=== PATIENT | male | born 1960 | race Hispanic/Latino ===

== ENCOUNTER 2017-07-06 07:34 | Emergency (ER) | payer BC ==
[2017-07-06 08:09] LABS: BASOPHILS % (AUTO) 0.7 % (0.0-5.0); EOSINOPHILS % (AUTO) 2.3 % (0.0-8.0); HEMATOCRIT 46.9 % (42-54); LYMPHOCYTES % (AUTO) 26.7 % (21.0-51.0); MEAN CORPUSCULAR HEMOGLOBIN 30.9 pg (27.0-33.0); MEAN CORPUSCULAR HGB CONC 34.4 g/dL (32.0-36.0); MONOCYTES % (AUTO) 6.5 % (3.0-13.0); NEUTROPHILS % (AUTO) 63.8 % (40.0-77.0); PLATELET COUNT (AUTO) 168 K/uL (130-400); RED BLOOD CELL COUNT(AUTO) 5.21 MIL/uL (4.50-6.20); RED CELL DISTRIBUTION WIDTH 13.2 % (11.0-15.5); WHITE BLOOD COUNT (AUTO) 5.9 K/uL (4.8-10.8)
[2017-07-06 08:20] LABS: CREATININE 1.1 mg/dL (0.5-1.5); POTASSIUM 4.2 mmol/L (3.5-5.1)
[2017-07-06 08:33] LABS: BILIRUBIN,TOTAL 1.7 mg/dL (0.2-1.0); CREATINE KINASE MB 0.6 ng/mL (0.5-3.6); TOTAL PROTEIN, SERUM 7.3 g/dL (6.0-8.3)
== END 2017-07-06 09:39 | disposition home or self-care (01) ==
LOC: EDH 07:34
DX: R07.89 Other chest pain (principal); R00.2 Palpitations; R42 Dizziness and giddiness; R11.0 Nausea; I10 Essential (primary) hypertension; K21.9 Gastro-esophageal reflux disease without esophagitis; F41.9 Anxiety disorder, unspecified; Z91.018 Allergy to other foods
CPT/HCPCS: 36415; 80053; 82550; 82553; 84484; 85025; 93005

== ENCOUNTER 2017-07-07 16:05 | Inpatient (IN) | payer BC ==
[~2017-07-07] VITALS: Ht 172.7 cm; Wt 95.3 kg
[2017-07-07 16:29] LABS: EOSINOPHILS % (AUTO) 1.4 % (0.0-8.0); HEMATOCRIT 45.7 % (42-54); MEAN CORPUSCULAR HEMOGLOBIN 30.9 pg (27.0-33.0); MEAN CORPUSCULAR HGB CONC 34.7 g/dL (32.0-36.0); MEAN CORPUSCULAR VOLUME 89.1 fL (79-99); MONOCYTES % (AUTO) 6.8 % (3.0-13.0); NEUTROPHILS % (AUTO) 69.8 % (40.0-77.0); PLATELET COUNT (AUTO) 182 K/uL (130-400); RED BLOOD CELL COUNT(AUTO) 5.13 MIL/uL (4.50-6.20); RED CELL DISTRIBUTION WIDTH 13.4 % (11.0-15.5); WHITE BLOOD COUNT (AUTO) 7.7 K/uL (4.8-10.8)
[2017-07-07] MEDS ORDERED: ASPIRIN 325 MG TABLET ONE (16:38)
[2017-07-07 16:42] LABS: INR 0.95 (0.85-1.15); PARTIAL THROMBOPLASTIN TIME 28.2 SEC (26.3-35.5)
[2017-07-07] MEDS ORDERED: ASPIRIN 81MG TAB.CHEW ONE (16:44)
[2017-07-07 17:02] LABS: CREATININE 1.2 mg/dL (0.5-1.5)
[2017-07-07 17:04] LABS: B-TYPE NATRIURETIC PEPTIDE 5 pg/mL (0-100)
[2017-07-07 17:06] LABS: BILIRUBIN,TOTAL 1.6 mg/dL (0.2-1.0); TOTAL PROTEIN, SERUM 7.6 g/dL (6.0-8.3)
[2017-07-07 20:27] VITALS: BP 120/77
[2017-07-07] MEDS ORDERED: POTASSIUM CHLORIDE 20MEQ/100ML 100 ML IV PRN (20:45)
[2017-07-07] MEDS ORDERED: SODIUM CHLORIDE 0.9% 10 ML VIAL IVP SCH (20:45)
[2017-07-07] MEDS ORDERED: MECLIZINE HCL 25 MG TABLET PO PRN (20:45)
[2017-07-07] MEDS ORDERED: ACETAMINOPHEN 325 MG TAB PO PRN ×2 (20:45)
[2017-07-07] MEDS ORDERED: DEXTROSE 50%-WATER 50 ML DISP.SYRIN IV PRN (20:45)
[2017-07-07] MEDS ORDERED: GLUCAGON 1MG KIT 1 MG ML IM PRN (20:45)
[2017-07-07] MEDS ORDERED: NITROGLYCERIN 0.4 MG SL TAB SL PRN (20:45)
[2017-07-07] MEDS ORDERED: LIDOCAINE HCL-MPF 1% 2ML VIAL IJ PRN (20:45)
[2017-07-07] MEDS ORDERED: POTASSIUM CHLORIDE 20 MEQ ERTAB PO PRN (20:45)
[2017-07-07] MEDS ORDERED: POTASSIUM CHLORIDE 10% ELIXIR 20 MEQ/15 ML UDCUP PO PRN (20:45)
[2017-07-07] MEDS ORDERED: MAG HYDROX/AL HYDROX/SIMETH ES 30 ML SUSP UDCUP PO PRN (20:45)
[2017-07-07] MEDS: INSULIN R PO SSI SQ SCH (21:00)
[2017-07-07] MEDS: FAMOTIDINE 20MG TAB 20 MG TAB PO SCH (21:29)
[2017-07-08] VITALS (8 sets, daily range): BP systolic 101–132; BP diastolic 54–76
[2017-07-08 05:34] LABS: THYROID STIMULATING HORMONE 4.47 uIU/mL (0.36-3.74)
[2017-07-08] MEDS: INSULIN R PO SSI SQ SCH ×4 (06:27→20:41)
[2017-07-08] MEDS: ASPIRIN 81MG TAB.CHEW PO SCH (09:00)
[2017-07-08] MEDS: CITALOPRAM 20 MG TABLET PO SCH (09:00)
[2017-07-08] MEDS: LISINOPRIL 10 MG TABLET PO SCH (09:00)
[2017-07-08] MEDS: FAMOTIDINE 20MG TAB 20 MG TAB PO SCH ×2 (09:00→20:05)
[2017-07-08] MEDS ORDERED: REGADENOSON 0.4 MG/5 ML PF SYG IVP SCH (10:00)
[2017-07-08] MEDS ORDERED: IOPAMIDOL-370 100 ML VIAL IV ONE (12:11)
[2017-07-09] VITALS (11 sets, daily range): BP systolic 105–151; BP diastolic 63–81
[2017-07-09 04:48] LABS: HEMATOCRIT 44.6 % (42-54); MEAN CORPUSCULAR HEMOGLOBIN 30.7 pg (27.0-33.0); MEAN CORPUSCULAR HGB CONC 34.4 g/dL (32.0-36.0); MEAN CORPUSCULAR VOLUME 89.2 fL (79-99); PLATELET COUNT (AUTO) 185 K/uL (130-400); WHITE BLOOD COUNT (AUTO) 7.3 K/uL (4.8-10.8)
[2017-07-09 05:00] LABS: CREATININE 1.1 mg/dL (0.5-1.5); POTASSIUM 4.1 mmol/L (3.5-5.1)
[2017-07-09] MEDS: CITALOPRAM 20 MG TABLET PO SCH (08:44)
[2017-07-09] MEDS: FAMOTIDINE 20MG TAB 20 MG TAB PO SCH (08:44)
[2017-07-09] MEDS: ASPIRIN 81MG TAB.CHEW PO SCH (09:52)
[2017-07-09] MEDS: LISINOPRIL 10 MG TABLET PO SCH (09:52)
[2017-07-09] MEDS ORDERED: ISOVUE-370 50ML VIAL IV ONE (12:31)
[2017-07-09] MEDS ORDERED: LIDOCAINE HCL 2% 20ML ONE (12:31)
[2017-07-09] MEDS ORDERED: BIVALIRUDIN 250 MG/VIAL IV ONE (12:31)
[2017-07-09] MEDS ORDERED: IOPAMIDOL-370 100 ML VIAL IV ONE (12:31)
[2017-07-09] MEDS ORDERED: NITROGLYCERIN 5 MG/ML 10 ML VIAL IV ONE (12:31)
[2017-07-09] MEDS ORDERED: MIDAZOLAM HCL 1 MG/ML 2ML VIAL ONE (13:01)
[2017-07-09] MEDS ORDERED: FENTANYL CITRATE PF 50 MCG/1 ML 2ML VIAL ONE (13:02)
[2017-07-09] MEDS ORDERED: SODIUM CHLORIDE 0.9% 1000ML 1,000 ML IV SCH (13:17)
[2017-07-09] MEDS ORDERED: METOPROLOL TARTRATE 1 MG/ML 5ML VIAL IV PRN (13:30)
[2017-07-09] MEDS ORDERED: ACETAMINOPHEN-CODEINE 300/30MG TAB PO PRN (13:30)
[2017-07-09] MEDS ORDERED: OMEP40CA37 PO (14:08)
[2017-07-09] MEDS ORDERED: LISI10TA7 PO (14:08)
[2017-07-09] MEDS ORDERED: ATORVASTATIN CALCIUM 20 MG TABLET PO SCH (21:00)
== END 2017-07-09 17:20 | disposition home or self-care (01) | DRG 287 ==
LOC: EDH 16:05 → EDHIP 16:06 → 2DH 20:05
PROVIDERS: ADMIT Family Medicine; ATTEND Family Medicine
PROC: 4A023N7 Measurement of Cardiac Sampling and Pressure, Left Heart, Percutaneous Approach (ICD-10-PCS; principal; 2017-07-09)
PROC: B2111ZZ Fluoroscopy of Multiple Coronary Arteries using Low Osmolar Contrast (ICD-10-PCS; 2017-07-09)
PROC: B2151ZZ Fluoroscopy of Left Heart using Low Osmolar Contrast (ICD-10-PCS; 2017-07-09)
DX: R07.89 Other chest pain (principal); E78.5 Hyperlipidemia, unspecified; I10 Essential (primary) hypertension; K21.9 Gastro-esophageal reflux disease without esophagitis; F32.9 Major depressive disorder, single episode, unspecified; F41.9 Anxiety disorder, unspecified; K25.9 Gastric ulcer, unspecified as acute or chronic, without hemorrhage or perforation; Z89.021 Acquired absence of right finger(s); Z87.11 Personal history of peptic ulcer disease; Z82.49 Family history of ischemic heart disease and other diseases of the circulatory system
CPT/HCPCS: 36415; 71045; 71275; 78452; 80048; 80053; 80061; 82140; 82550; 82948; 83880; 84439; 84443; 84484; 85025; 85027; 85610; 85730; 93005; 93017; 93306; 93458; 96374; A9500; C1760; C1894; J0583; J1644; J2250; J2785; J3010; J3490; Q9967

== ENCOUNTER 2017-07-17 08:37 | Emergency (ER) | payer BC ==
[~2017-07-17 08:37] MED LIST: LISI10TA7 PO; OMEP40CA37 PO
[2017-07-17 09:04] LABS: BASOPHILS % (AUTO) 1.1 % (0.0-5.0); EOSINOPHILS % (AUTO) 1.7 % (0.0-8.0); HEMATOCRIT 43.6 % (42-54); LYMPHOCYTES % (AUTO) 22.6 % (21.0-51.0); MEAN CORPUSCULAR HEMOGLOBIN 30.6 pg (27.0-33.0); MEAN CORPUSCULAR HGB CONC 34.5 g/dL (32.0-36.0); MEAN CORPUSCULAR VOLUME 88.9 fL (79-99); MONOCYTES % (AUTO) 8.8 % (3.0-13.0); NEUTROPHILS % (AUTO) 65.8 % (40.0-77.0); PLATELET COUNT (AUTO) 171 K/uL (130-400); RED CELL DISTRIBUTION WIDTH 12.9 % (11.0-15.5); WHITE BLOOD COUNT (AUTO) 4.8 K/uL (4.8-10.8)
[2017-07-17 09:12] LABS: POTASSIUM 4.2 mmol/L (3.5-5.1)
[2017-07-17 09:23] LABS: INR 0.96 (0.85-1.15); PROTHROMBIN TIME 10.1 SEC (9.6-11.6)
[2017-07-17 09:39] LABS: ALBUMIN 3.8 g/dL (3.5-5.0); TOTAL PROTEIN, SERUM 7.4 g/dL (6.0-8.3)
== END 2017-07-17 11:35 | disposition home or self-care (01) ==
LOC: EDH 08:37
DX: R42 Dizziness and giddiness (principal); R00.2 Palpitations; I10 Essential (primary) hypertension; E78.00 Pure hypercholesterolemia, unspecified; F41.9 Anxiety disorder, unspecified; Z88.8 Allergy status to other drugs, medicaments and biological substances
CPT/HCPCS: 36415; 70450; 71045; 80053; 82550; 82553; 84484; 85025; 85610; 85730; 93005